=== PATIENT | male | born 1945 | race African-American/Black ===

== ENCOUNTER 2017-09-13 11:44 | Inpatient (IN) | payer MEDICARE, MEDICAID ==
[~2017-09-13] VITALS: Ht 188 cm; Wt 105.2 kg
[~2017-09-13 11:44] MED LIST: NUCENTA
[2017-09-13] MEDS ORDERED: ONDANSETRON 4MG ODT PO ONE (13:30)
[2017-09-13 13:51] LABS: HEMATOCRIT. 45.5 % (42.0-52.0); HEMOGLOBIN. 15.1 g/dL (14.0-18.0); MEAN CORPUSCULAR HEMOGLOBIN 31.3 pg (28.0-32.0); MEAN CORPUSCULAR VOLUME 94.2 fL (80.0-94.0); MEAN PLATELET VOLUME 9.3 fl (7.4-10.4); PLATELET 221 x1000/uL (130-400); RED BLOOD CELL COUNT 4.83 mill/uL (4.7-6.1); RED CELL DISTRIBUTION WIDTH 13.6 % (11.6-14.6)
[2017-09-13 13:54] LABS: CHLORIDE 105 mEq/L (98-107)
[2017-09-13 13:58] LABS: INR 1.3; PARTIAL THROMBOPLASTIN TIME 25.5 sec (23.4-31.0); PROTHROMBIN TIME 13.4 sec (9.4-11.6)
[2017-09-13 14:10] LABS: ATYPICAL LYMPHOCYTES 1; PLATELET ESTIMATE NORMAL
[2017-09-13] MEDS ORDERED: MORPHINE SULFATE 4 MG/ML CPJ (NOT FOR IM USE) IV ONE ×2 (14:30→16:30)
[2017-09-13 15:06] LABS: *AMPHETAMINES SCREEN URINE NEGATIVE (NEGATIVE); *BARBITURATES SCREEN URINE NEGATIVE (NEGATIVE)
[2017-09-13 15:07] LABS: *BENZODIAZEPINES SCREEN URINE NEGATIVE (NEGATIVE); *COCAINE SCREEN URINE NEGATIVE (NEGATIVE); CANNABINOID URINE SCREEN PRESUMTIVE POSITIVE (NEGATIVE); METHADONE URINE SCREEN PRESUMTIVE POSITIVE (NEGATIVE); OPIATES URINE SCREEN PRESUMTIVE POSITIVE (NEGATIVE); PHENCYCLIDINE URINE SCREEN NEGATIVE (NEGATIVE)
[2017-09-13 15:12] LABS: CLARITY URINE CLEAR (CLEAR); COLOR URINE YELLOW (YELLOW); KETONES URINE TRACE (NEGATIVE); LEUKOCYTE ESTERASE URINE NEGATIVE (NEGATIVE); NITRITE URINE NEGATIVE (NEGATIVE); OCCULT BLOOD URINE 1+ (NEGATIVE); PROTEIN URINE NEGATIVE (NEGATIVE); SPECIFIC GRAVITY URINE 1.017 (1.005-1.030); UROBILINOGEN URINE 0.2 E.U./dL (0.2-1.0)
[2017-09-13] MEDS ORDERED: ONDANSETRON HCL 4MG/2ML VIAL IV ONE (16:30)
[2017-09-13] MEDS ORDERED: SODIUM CHLORIDE 0.9% 1,000 ML IV SCH ×3 (17:33→21:15)
[2017-09-13] MEDS ORDERED: NITROGLYCERIN 0.4MG TABLET SL SL PRN ×4 (17:45→21:15)
[2017-09-13] MEDS ORDERED: TRAMADOL 50MG TABLET PO PRN ×3 (17:45→21:15)
[2017-09-13] MEDS ORDERED: KETOROLAC 15MG/ML VIAL IV PRN ×3 (17:45→21:15)
[2017-09-13] MEDS ORDERED: MAGNESIUM/ALUMINUM HYDROXIDE/SIMETHICONE 30ML UDC PO PRN ×4 (17:45→21:15)
[2017-09-13] MEDS ORDERED: LORAZEPAM 0.5MG TABLET PO PRN ×4 (17:45→21:15)
[2017-09-13] MEDS ORDERED: IPRATROPIUM/ALBUTEROL 0.5-3(2.5)MG/3ML NEB INH PRN ×4 (17:45→21:15)
[2017-09-13] MEDS ORDERED: CLONIDINE 0.1MG TABLET PO PRN ×4 (17:45→21:15)
[2017-09-13] MEDS ORDERED: DIPHENHYDRAMINE 50MG/ML VIAL IV PRN ×4 (17:45→21:15)
[2017-09-13] MEDS ORDERED: POTASSIUM CHLORIDE 20MEQ TABLET SR PO ONE ×3 (17:45)
[2017-09-13] MEDS ORDERED: GUAIFENESIN 200MG/10ML SUGAR FREE UDC PO PRN ×4 (17:45→21:15)
[2017-09-13] MEDS ORDERED: ONDANSETRON HCL 4MG/2ML VIAL IV PRN ×3 (17:45→21:15)
[2017-09-13] MEDS ORDERED: ACETAMINOPHEN 325MG TABLET PO PRN ×4 (17:45→21:15)
[2017-09-13] MEDS ORDERED: NA PHOS,M-B/NA PHOS,DI-BA ENEMA 118ML PR PRN ×4 (17:45→23:00)
[2017-09-13] MEDS ORDERED: DOCUSATE SODIUM 100MG CAPSULE PO PRN ×4 (17:45→21:15)
[2017-09-13] MEDS ORDERED: ENOXAPARIN 40MG/0.4ML SYR SUBCUT SCH ×3 (17:45→21:15)
[2017-09-13] MEDS ORDERED: ZOLPIDEM TARTRATE 5MG TABLET PO PRN ×4 (17:45→21:15)
[2017-09-13] MEDS ORDERED: SUCRALFATE 1 G/10 ML UDC PO SCH ×3 (21:00→21:30)
[2017-09-13] MEDS ORDERED: METOPROLOL TARTRATE 25MG TABLET PO SCH ×3 (21:00→21:30)
[2017-09-13] MEDS ORDERED: FAMOTIDINE 20MG TABLET PO SCH ×3 (21:00→21:30)
[2017-09-13 22:00] VITALS: BP 140/82
[2017-09-13] MEDS ORDERED: POTASSIUM CHLORIDE 20MEQ TABLET SR PO NR (22:40)
[2017-09-13] MEDS ORDERED: ONDANSETRON 4MG ODT PO PRN (22:45)
[2017-09-14] VITALS: BP 120/77
[2017-09-14 04:00] VITALS: BP 123/68
[2017-09-14] MEDS: SODIUM CHLORIDE 0.9% 1,000 ML IV SCH ×2 (06:24→14:00)
[2017-09-14] MEDS: SUCRALFATE 1 G/10 ML UDC PO SCH ×4 (06:25→21:30)
[2017-09-14 08:00] VITALS: BP 154/91
[2017-09-14] MEDS: FAMOTIDINE 20MG TABLET PO SCH ×2 (08:55→21:30)
[2017-09-14] MEDS: ENOXAPARIN 30MG/0.3ML SYR SUBCUT SCH ×2 (09:08→21:31)
[2017-09-14] MEDS: METOPROLOL TARTRATE 25MG TABLET PO SCH ×2 (09:09→21:31)
[2017-09-14] MEDS: KETOROLAC 15MG/ML VIAL IV PRN ×2 (10:02→17:51)
[2017-09-14] MEDS: METHADONE HCL 10MG TABLET PO SCH (11:37)
[2017-09-14 12:00] VITALS: BP 146/83
[2017-09-14 12:58] LABS: BASOPHILS % 0.3 % (0.0-2.0); HEMATOCRIT. 46.1 % (42.0-52.0); HEMOGLOBIN. 15.3 g/dL (14.0-18.0); LYMPHOCYTES % 14.1 % (20.0-50.0); MEAN CORPUSCULAR HEMOGLOBIN 31.1 pg (28.0-32.0); MEAN CORPUSCULAR VOLUME 93.7 fL (80.0-94.0); MEAN PLATELET VOLUME 9.4 fl (7.4-10.4); MONOCYTES % 8.8 % (2.0-8.0); NEUTROPHILS % 76.8 % (40.0-76.0); PLATELET 216 x1000/uL (130-400); RED BLOOD CELL COUNT 4.92 mill/uL (4.7-6.1); RED CELL DISTRIBUTION WIDTH 13.6 % (11.6-14.6)
[2017-09-14 13:54] LABS: CHLORIDE 104 mEq/L (98-107)
[2017-09-14 13:58] LABS: AMYLASE 76 IU/L (25-115)
[2017-09-14 16:00] VITALS: BP 132/90
[2017-09-14 20:00] VITALS: BP 148/79
[2017-09-15] VITALS: BP 128/82
[2017-09-15 04:00] VITALS: BP 137/94
[2017-09-15] MEDS: SUCRALFATE 1 G/10 ML UDC PO SCH ×4 (07:20→20:47)
[2017-09-15 08:00] VITALS: BP 150/72
[2017-09-15] MEDS: METHADONE HCL 10MG TABLET PO SCH (08:14)
[2017-09-15] MEDS: FAMOTIDINE 20MG TABLET PO SCH ×2 (08:15→20:47)
[2017-09-15] MEDS: METOPROLOL TARTRATE 25MG TABLET PO SCH ×2 (08:15→20:47)
[2017-09-15] MEDS: ENOXAPARIN 30MG/0.3ML SYR SUBCUT SCH ×2 (08:15→20:48)
[2017-09-15 12:00] VITALS: BP 148/109
[2017-09-15 16:00] VITALS: BP 161/97
[2017-09-15] MEDS: TRAMADOL 50MG TABLET PO PRN (17:44)
[2017-09-15 20:00] VITALS: BP 152/78
[2017-09-16] VITALS: BP 146/76
[2017-09-16 04:00] VITALS: BP 153/93
[2017-09-16] MEDS: SODIUM CHLORIDE 0.9% 1,000 ML IV SCH (04:05)
[2017-09-16] MEDS: SUCRALFATE 1 G/10 ML UDC PO SCH (06:30)
[2017-09-16 08:00] VITALS: BP 167/82
[2017-09-16] MEDS: FAMOTIDINE 20MG TABLET PO SCH (08:40)
[2017-09-16] MEDS: METOPROLOL TARTRATE 25MG TABLET PO SCH (08:41)
[2017-09-16] MEDS: TRAMADOL 50MG TABLET PO PRN (08:42)
[2017-09-16] MEDS: ENOXAPARIN 30MG/0.3ML SYR SUBCUT SCH (08:43)
[2017-09-16] MEDS ORDERED: METHADONE HCL 10MG TABLET PO SCH (10:00)
[2017-09-16 11:07] VITALS: BP 167/82
[2017-09-16 12:00] VITALS: BP 169/93
== END 2017-09-16 11:45 | disposition home or self-care (01) | DRG 282 ==
LOC: ER 11:56 → 6EST 17:39 → EDBEDREQ 17:41 → ENRESERV 17:51 → ER 20:02
PROVIDERS: ADMIT Internal Medicine; ATTEND Internal Medicine
DX: K85.90 Acute pancreatitis without necrosis or infection, unspecified (principal); E87.5 Hyperkalemia; K75.9 Inflammatory liver disease, unspecified; F11.10 Opioid abuse, uncomplicated; I10 Essential (primary) hypertension; F12.10 Cannabis abuse, uncomplicated; E87.6 Hypokalemia; K52.9 Noninfective gastroenteritis and colitis, unspecified; Z79.899 Other long term (current) drug therapy; Z86.19 Personal history of other infectious and parasitic diseases
CPT/HCPCS: 36415; 71045; 74176; 76700; 80053; 80061; 80305; 81003; 82150; 83036; 83690; 85025; 85610; 85730; 93005; 93970; 96374; 96375; 96376; 97162; 97165; 99285; J1650; J1885; J2270; J2405; Q0162

== ENCOUNTER 2018-11-22 14:26 | Emergency (ER) | payer MEDICARE, MEDICAID ==
[~2018-11-22] VITALS: Ht 182.9 cm; Wt 93.0 kg
[2018-11-22] MEDS ORDERED: IBUPROFEN 600MG TABLET PO STA (18:10)
[2018-11-22 18:27] VITALS: BP 142/89
== END 2018-11-22 18:19 | disposition home or self-care (01) ==
LOC: ER 14:26
DX: K02.9 Dental caries, unspecified (principal); K04.7 Periapical abscess without sinus; Z98.890 Other specified postprocedural states; F11.10 Opioid abuse, uncomplicated; Z88.7 Allergy status to serum and vaccine
CPT/HCPCS: 99283

== ENCOUNTER 2019-10-15 09:48 | Emergency (ER) | payer MEDICARE, MEDICAID ==
[~2019-10-15] VITALS: Ht 175.3 cm; Wt 114.0 kg
[2019-10-15] MEDS ORDERED: SODIUM CHLORIDE 0.9% 1,000 ML IV ONE (10:31)
[2019-10-15] MEDS ORDERED: MAGNESIUM/ALUMINUM HYDROXIDE/SIMETHICONE 30ML UDC PO STA (10:31)
[2019-10-15] MEDS ORDERED: ONDANSETRON HCL 4MG/2ML INJ IV STA (10:31)
[2019-10-15] MEDS ORDERED: FAMOTIDINE 20MG/2ML VIAL IV STA (10:31)
[2019-10-15 10:47] LABS: BASOPHILS % 0.4 % (0.0-2.0); EOSINOPHILS % 1.9 % (0.0-5.0); HEMATOCRIT. 46.7 % (42.0-52.0); HEMOGLOBIN. 15.5 g/dL (14.0-18.0); LYMPHOCYTES % 14.6 % (20.0-50.0); MEAN CORPUSCULAR HEMOGLOBIN 31.2 pg (28.0-32.0); MEAN CORPUSCULAR VOLUME 94.4 fL (80.0-94.0); MONOCYTES % 8.2 % (2.0-8.0); NEUTROPHILS % 74.9 % (40.0-76.0); PLATELET 204 x1000/uL (130-400); RED BLOOD CELL COUNT 4.95 mill/uL (4.7-6.1); RED CELL DISTRIBUTION WIDTH 13.5 % (11.6-14.6)
[2019-10-15 10:54] LABS: CHLORIDE 105 mEq/L (98-107)
[2019-10-15 10:57] LABS: CLARITY URINE CLEAR (CLEAR); COLOR URINE YELLOW (YELLOW); KETONES URINE NEGATIVE (NEGATIVE); LEUKOCYTE ESTERASE URINE NEGATIVE (NEGATIVE); NITRITE URINE NEGATIVE (NEGATIVE); OCCULT BLOOD URINE NEGATIVE (NEGATIVE); PROTEIN URINE NEGATIVE (NEGATIVE); SPECIFIC GRAVITY URINE 1.017 (1.005-1.030)
[2019-10-15 11:01] LABS: INR 1.1
[2019-10-15] MEDS ORDERED: ONDANSETRON HCL 4MG/2ML INJ IV ONE (12:15)
[2019-10-15 17:10] VITALS: BP 165/135
== END 2019-10-15 17:12 | disposition home or self-care (01) ==
LOC: ER 10:00
DX: R11.2 Nausea with vomiting, unspecified (principal); D72.829 Elevated white blood cell count, unspecified; K76.9 Liver disease, unspecified; Z88.8 Allergy status to other drugs, medicaments and biological substances; Z86.19 Personal history of other infectious and parasitic diseases
CPT/HCPCS: 36415; 71045; 80053; 81003; 83690; 84484; 85025; 85610; 93005; 96361; 96374; 96375; 96376; 99285; J2405; J3490; J7030